=== PATIENT | male | born 1995 | race African-American/Black ===

== ENCOUNTER 2021-05-07 23:17 | Emergency (ER) | payer SELFPAY ==
[2021-05-08 17:14] LABS: SARS-CoV-2 PCR by NAA Not Detected (NotDetected)
== END 2021-05-08 02:53 | disposition home or self-care (01) ==
LOC: ERS 23:17
DX: B34.9 Viral infection, unspecified (principal); I10 Essential (primary) hypertension; Z20.822 Contact with and (suspected) exposure to COVID-19
CPT/HCPCS: 99284; U0003; U0005